=== PATIENT | female | born 1965 | race Caucasian/White ===

== ENCOUNTER 2018-06-09 18:51 | Emergency (ER) | payer OTHER ==
[~2018-06-09] VITALS: Ht 162.6 cm; Wt 125.2 kg
[2018-06-09] MEDS ORDERED: ASPIR 8181 MG PO (20:30)
[2018-06-09] MEDS ORDERED: LIPITOR10 MG PO (20:30)
[2018-06-09] MEDS ORDERED: SPIRONOLACTONE25 MG PO (20:30)
[2018-06-09] MEDS ORDERED: LISINOPRIL20 MG PO (20:31)
[2018-06-09] MEDS ORDERED: GLUCOPHAGE XR500 MG PO (20:31)
[2018-06-09] MEDS ORDERED: TESSALON PERLE100 MG PO (20:32)
[2018-06-09 21:28] LABS: HEMOGLOBIN 12.5 gm/dL (12.0-15.0); MCH 30.9 pg (26.0-34.0); MCHC 34.8 g/dL (28.0-37.0); MCV 88.8 fL (80.0-100.0); RBC 4.06 mil/uL (4.20-5.00); RDW 13.5 % (10.5-14.5)
[2018-06-09 21:36] LABS: CALCIUM 9.3 mg/dL (8.5-10.1); CREATININE 0.9 mg/dL (0.6-1.0); POTASSIUM 3.6 mmol/L (3.5-5.1)
[2018-06-09 21:42] LABS: PROTIME 10.9 Seconds (9.3-11.4)
[2018-06-09] MEDS ORDERED: PROMETH-CODEIN 65 ML PO (22:06)
[2018-06-09 22:09] VITALS: BP 109/80
== END 2018-06-09 22:22 | disposition home or self-care (01) ==
LOC: ER 18:51
PROVIDERS: Physician Assistant
DX: R04.0 Epistaxis (principal); J30.9 Allergic rhinitis, unspecified; R05 Cough

== ENCOUNTER 2018-06-10 22:43 | Emergency (ER) | payer OTHER ==
[~2018-06-10] VITALS: Ht 162.6 cm; Wt 123.8 kg
[~2018-06-10 22:43] MED LIST: ASPIR 8181 MG PO; GLUCOPHAGE XR500 MG PO; LIPITOR10 MG PO; LISINOPRIL20 MG PO; PROMETH-CODEIN 65 ML PO; SPIRONOLACTONE25 MG PO; TESSALON PERLE100 MG PO
[2018-06-11 00:43] VITALS: BP 115/63
== END 2018-06-11 00:43 | disposition home or self-care (01) ==
LOC: ER 22:43
DX: R04.0 Epistaxis (principal)

== ENCOUNTER 2018-11-30 15:48 | Emergency (ER) | payer OTHER ==
[~2018-11-30] VITALS: Ht 167.6 cm; Wt 122.5 kg
[2018-11-30 17:09] LABS: ABSOLUTE NEUTROPHILS 9.4 thou/uL (1.4-8.2); WBC 12.8 thou/uL (4.0-11.0)
[2018-11-30 17:18] LABS: BASOPHILS 0.6 % (0.0-2.0); HEMATOCRIT 38.8 % (37.0-47.0); LYMPHOCYTES 18.5 % (24.0-44.0); MCH 30.3 pg (26.0-34.0); MCHC 33.5 g/dL (28.0-37.0); MCV 90.5 fL (80.0-100.0); MONOCYTES 6.5 % (1.0-8.0); PLATELET COUNT 219 thou/uL (150-400); POLYS 73.4 % (36.0-66.0); RBC 4.29 mil/uL (4.20-5.00); RDW 13.6 % (10.5-14.5)
[2018-11-30 17:21] LABS: ANION GAP 8 mmol/L (7-16); BUN 12 mg/dL (7-18); CALCIUM 9.3 mg/dL (8.5-10.1); CHLORIDE 103 mmol/L (98-107); CO2 27 mmol/L (21-32); CREATININE 0.9 mg/dL (0.6-1.0); GLUCOSE 107 mg/dL (74-106); POTASSIUM 3.8 mmol/L (3.5-5.1); SODIUM 138 mmol/L (136-145)
[2018-11-30 17:21] LABS: URINE BILIRUBIN NEGATIVE (Negative); URINE BLOOD NEGATIVE (Negative); URINE CLARITY CLEAR; URINE COLOR YELLOW; URINE GLUCOSE-RANDOM* NEGATIVE (Negative); URINE KETONES NEGATIVE (Negative); URINE LEUKOCYTES-REFLEX TRACE (Negative); URINE NITRITE-REFLEX NEGATIVE (Negative); URINE PROTEIN (DIPSTICK) NEGATIVE (Negative); URINE SPECIFIC GRAVITY 1.025 (1.005-1.035); URINE UROBILINOGEN 0.2 E.U./dl (0.2-1.0)
[2018-11-30 17:31] LABS: ALBUMIN 3.4 g/dL (3.4-5.0); LIPASE 51 U/L (73-393); SGOT 14 U/L (15-37); SGPT 21 U/L (30-65); TOTAL BILIRUBIN 0.9 mg/dL (<0.1-1.0); TOTAL PROTEIN 8.1 g/dL (6.4-8.2); TROPONIN-I <0.06 ng/mL (<0.06)
[2018-11-30] MEDS ORDERED: NORCO 5-325 TA1 EAC1 PO (18:56)
[2018-11-30] MEDS ORDERED: CIPRO500 M1 PO (18:56)
[2018-11-30] MEDS ORDERED: FLAGYL500 M1 PO (18:56)
[2018-11-30 18:58] VITALS: BP 125/68
--- NOTE | 2018-12-01 08:44 | EKG ---
[address] [place] [address] [place] [address] ELECTROCARDIOGRAM REPORT Name: CHANELSARWAT Room #: [facility]P [id number] Admission: 11/30/18 Attend Phys: Discharge: 11/30/18 Date of : 63 Report #: [id number] THIS REPORT FOR: //name// [facility] ED Test Date: 2018-11-30 Test Time: 17:12:03 Pat Name: SARWAT CHANEL Department: Room: Gender: F Health/Safety Job Titles: : 1965 Requested By: Lenin No Order Number: [id number] MD: Pradeep Bunch Measurements Intervals [place] Rate: 79 P: 45 NE: 165 QRS: 32 QRSD: 95 T: 0 QT: 360 QTc: 413 Interpretive Statements Sinus rhythm Nonspecific ST and T wave abnormality No previous ECG available for comparison Electronically Signed On 12-01-2018 8:44:13 CDT by Pradeep Bunch [email or web address] <ELECTRONICALLY SIGNED> By: Pradeep Bunch MD, [facility] 12/01/18 0844 1712 1712 Pradeep Bunch MD, FACC /EPI
== END 2018-11-30 18:58 | disposition home or self-care (01) ==
LOC: ER 15:48
PROVIDERS: Emergency Medicine
DX: K57.32 Diverticulitis of large intestine without perforation or abscess without bleeding (principal)